=== PATIENT | male | born 1955 | race Caucasian/White ===

== ENCOUNTER 2019-08-03 22:03 | Inpatient (IN) | payer OTHER ==
[~2019-08-03] VITALS: Ht 187.9 cm; Wt 108.0 kg
[2019-08-03 22:04] VITALS: BP 149/96
--- NOTE | 2019-08-03 22:22 | NUR ---
PT WAS ABLE TO COUGH UP A DIME SIZE PIECE OF STEAK. JORDEN JETER RN.
[2019-08-03 22:50] VITALS: BP 151/96
--- NOTE | 2019-08-03 23:01 | NUR ---
CALLED TO PATIENTS ROOM STATES HE FEELS COLD CLAMMY AND NAUSEATED. PULSE OX AT 100% BP OF 162/90. MADE AWARE. PT HAS CALL LIGHT AND AT BEDSIDE. JORDEN JETER RN.
--- NOTE | 2019-08-03 23:30 | NUR ---
PT UP WALKING IN THE DEPARTMENT STATES HE IS BRINGING UP SMALLAMOUNTS BUT STILL UNABLE TO SWALLOW HIS SALIVA. MADE AWARE . SECOND DSE OF GLUCOGON ORDERED AND GIVEN. JORDEN JETER RN.
[2019-08-03 23:50] VITALS: BP 151/84
[2019-08-04] VITALS (8 sets, daily range): BP systolic 130–154; BP diastolic 72–97
--- NOTE | 2019-08-04 00:37 | NUR ---
PT AGAIN WALKING AROUND THE DEPARTMENT . STATES HE IS STILL UNABLE TO SWALLOW HIS SALIVA MD IS AWARE. JORDEN JETER RN.
[2019-08-04 00:55] LABS: BASO % 0.3 % (0.0-1.0); EOS % 0.2 % (1.0-4.0); HEMATOCRIT 43.3 % (42.0-52.0); HEMOGLOBIN 15.2 g/dl (14.0-18.0); LYMPH # 1.2 10*3/uL (1.3-4.4); LYMPH % 11.7 % (27.0-41.0); MEAN CELL VOLUME 93.3 fl (80.0-94.0); MEAN CORPUSCULAR HGB 32.8 pg (27.0-31.0); MEAN CORPUSCULAR HGB CONC 35.1 g/dl (33.0-37.0); MEAN PLATELET VOLUME 9.2 fl (9.6-12.3); MONO # 0.7 10*3/uL (0.1-1.0); MONO % 7.3 % (3.0-9.0); NEUT # 8.1 10*3/uL (2.3-7.9); NEUT % 80.2 % (47.0-73.0); PLATELET COUNT AUTOMATED 152 10*3/uL (130-400); RED BLOOD COUNT 4.64 10*6/uL (4.50-5.90); RED CELL DISTRI WIDTH 11.9 % (0-14.5); WHITE BLOOD COUNT 10.1 10*3/uL (4.8-10.8)
[2019-08-04 01:09] LABS: ALKALINE PHOSPHATASE 88 U/L (45-117); BUN 20 mg/dl (7-24); CHLORIDE 109 mmol/L (98-107); CREATININE 1.18 mg/dL (0.70-1.30); POTASSIUM 3.7 mmol/L (3.5-5.1); SGOT/AST 24 IU/L (3-35); SGPT/ALT 26 U/L (12-78); SODIUM 140 mmol/L (136-145); TOTAL PROTEIN 7.3 gm/dL (6.4-8.2)
--- NOTE | 2019-08-04 01:30 | NUR ---
A 64, admitted to 5E, under the services of ALIE Hernadez DO with a diagnosis of DYSPHAGIA. Chief complaint is DYSPHAGIA. Patient arrived via ambulatory from ER. Monitor applied. Initial assessment completed. Vital signs taken and recorded. ALIE HERNADEZ DO notified of admission to the unit. Orders received. See assessment for past medical history, medications and allergies. Patient and/or family oriented to unit. [address] visitation policy reviewed. Clothing/patient valuable form completed. [employer]
[2019-08-04 06:41] LABS: BASO % 0.3 % (0.0-1.0); EOS % 0.4 % (1.0-4.0); HEMATOCRIT 41.4 % (42.0-52.0); HEMOGLOBIN 14.7 g/dl (14.0-18.0); LYMPH # 1.2 10*3/uL (1.3-4.4); MEAN CELL VOLUME 93.7 fl (80.0-94.0); MEAN CORPUSCULAR HGB 33.3 pg (27.0-31.0); MEAN CORPUSCULAR HGB CONC 35.5 g/dl (33.0-37.0); MEAN PLATELET VOLUME 9.5 fl (9.6-12.3); MONO # 0.7 10*3/uL (0.1-1.0); MONO % 9.4 % (3.0-9.0); NEUT # 5.4 10*3/uL (2.3-7.9); NEUT % 73.6 % (47.0-73.0); PLATELET COUNT AUTOMATED 152 10*3/uL (130-400); RED BLOOD COUNT 4.42 10*6/uL (4.50-5.90); RED CELL DISTRI WIDTH 12.1 % (0-14.5); WHITE BLOOD COUNT 7.3 10*3/uL (4.8-10.8)
[2019-08-04 07:18] LABS: ALBUMIN 3.7 gm/dl (3.1-4.5); ALKALINE PHOSPHATASE 84 U/L (45-117); BUN 19 mg/dl (7-24); CHLORIDE 111 mmol/L (98-107); CHOLESTEROL 186 mg/dL (<200); CREATININE 0.99 mg/dL (0.70-1.30); FREE T4 1.16 ng/dl (0.76-1.46); HDL CHOLESTEROL 81 mg/dl (40-60); PHOSPHOROUS 2.8 mg/dL (2.5-4.9); POTASSIUM 3.9 mmol/L (3.5-5.1); SGOT/AST 21 IU/L (3-35); SGPT/ALT 22 U/L (12-78); SODIUM 143 mmol/L (136-145)
[2019-08-04 07:24] LABS: LDL CHOLESTEROL 92 mg/dL (9-159); TRIGLYCERIDES 64 mg/dl (<150); VLDL CHOLESTEROL 13 mg/dL (6-40)
[2019-08-04 07:58] LABS: VITAMIN D, 25-HYDROXY 27.8 ng/mL (30-100)
--- NOTE | 2019-08-04 13:43 | NUR ---
PT OFF FLOOR TO SURGERY.
--- NOTE | 2019-08-04 19:30 | NUR ---
Discharge instructions reviewed with patient/family. Patient receptive and verbalizes understanding. Follow-up care arranged. Written instructions given to patient/family. ANGELA GUZMAN
== END 2019-08-04 20:25 | disposition home or self-care (01) | DRG 395 ==
LOC: ED 22:03 → 5E 08-04 00:52 → EDHOLD 08-04 00:52 → 5E 08-04 00:57
PROVIDERS: Emergency Medicine; Internal Medicine; ADMIT Internal Medicine
PROC: 0DC58ZZ Extirpation of Matter from Esophagus, Via Natural or Artificial Opening Endoscopic (ICD-10-PCS; principal; 2019-08-04)
DX: T18.128A Food in esophagus causing other injury, initial encounter (principal); E87.8 Other disorders of electrolyte and fluid balance, not elsewhere classified; R73.9 Hyperglycemia, unspecified; R03.0 Elevated blood-pressure reading, without diagnosis of hypertension; K63.5 Polyp of colon; K22.2 Esophageal obstruction; K44.9 Diaphragmatic hernia without obstruction or gangrene; K21.9 Gastro-esophageal reflux disease without esophagitis; K31.7 Polyp of stomach and duodenum; Z82.49 Family history of ischemic heart disease and other diseases of the circulatory system